=== PATIENT | female | born 1955 | race Two or more races ===

== ENCOUNTER → 2024-11-07 | Outpatient (CLI) | payer MEDICARE, SELFPAY ==
--- NOTE | 2024-11-07 08:51 | XR_ITS ---
Examination: Knee, right , 3 views Technique: Knee AP, lateral, oblique 3 views Date and time of exam: November 07, 2024 1002 hours INDICATIONS: Knee pain for years. FINDINGS: Moderate osteopenia Advanced medial joint space Significant osteoarthritis lateral patellofemoral joints IMPRESSION: Advanced tricompartment osteoarthritis
== END | disposition home or self-care (01) ==
LOC: CDIM 08:45
PROVIDERS: Referring Provider Orthopaedic Surgery; Visit Provider Orthopaedic Surgery
DX: M17.11 Unilateral primary osteoarthritis, right knee (principal)
CPT/HCPCS: 73562

== ENCOUNTER 2025-03-11 14:59 | Emergency (ER) | payer MEDICARE, SELFPAY ==
[2025-03-11 15:31] VITALS: BP 123/70; PULSE 80; RESP 18; TEMP 37.2; O2SAT 98
--- NOTE | 2025-03-11 15:45 | XR_ITS ---
Examination: CT abdomen with intravenous contrast CT pelvis with intravenous contrast 2-D coronal reconstructions 2-D sagittal reconstructions Date and time of exam:March 10, 1706 hrs., Comparison November 13, 2023. Indications: Abdominal pain constipation beginning one month ago. CTDI: vol (mGy) 7.92 DLP: (mGycm) 166 Technique: Multiple axial sections of the abdomen and pelvis have been obtained. 64 slice high-resolution scanner used. 3 mm axial sections have been obtained, post intravenous injection 60 cc [id number]. 2-D sagittal, coronal reconstructions obtained. Low dose protocols were performed. One or more of the following dose reduction techniques were used; automated exposure control, adjustment of the mA and/or KV according to patient size, use of iterative reconstruction technique. Findings: Suspicious for pulmonary edema the lung bases Mild enlargement cardiac contour No focal liver or splenic lesions Contracted gallbladder Moderate renal parenchymal scar formation, no hydronephrosis or ureteral calculi Normal appendix No bowel obstruction No pancreatic or adrenal mass. Posterior 18 mm left renal cyst No renal or ureteral calculi, no hydronephrosis Aorta normal size 20 mm fat-containing umbilical hernia. Normal appendix No bowel obstruction Scattered colonic diverticulosis, no diverticulitis Absent uterus Contracted urinary bladder Moderate osteopenia with mild to moderate diffuse lumbar disc narrowing Impression: Suspicious for pulmonary edema at the lung bases, recommend PA chest follow-up Bilateral moderate renal parenchymal scar formation. Normal appendix No bowel obstruction
--- NOTE | 2025-03-11 15:45 | PD.EDADULT ---
ED General RME/HPI General Chief complaint: General Adult/Misc Complain Stated complaint: CONSTIPATED; UNABLE TO PASS GAS Time Seen by Provider: 03/11/25 15:35 Arrival date/time: 03/11/25 14:59 Related Data Home Medications ?Medication ?Instructions ?Recorded ?Confirmed paroxetine HCl 10 mg tablet 10 mg PO HS 09/09/18 11/19/23 pregabalin 75 mg capsule (Lyrica) 75 mg PO BID 09/09/18 11/19/23 spironolactone 50 mg tablet 50 mg PO QDAY 09/09/18 11/19/23 hydrocodone 5 mg-acetaminophen 325 1 tab PO Q12HR PRN Pain 09/11/18 11/19/23 mg tablet Previous Rx's ?Medication ?Instructions ?Recorded benzonatate 200 mg capsule 200 mg PO BID PRN cough #30 caps 06/18/19 ipratropium bromide 21 mcg (0.03 2 spray intranasal BID #30 mL 06/18/19 %) nasal spray loratadine 10 mg tablet (Allergy 10 mg PO QDAY allergy symptoms #30 06/18/19 Relief (loratadine)) tabs pseudoephedrine HCl 120 mg 120 mg PO Q12H PRN nasal 06/18/19 tablet,extended release (Sudafed congestion #14 tabs 12 Hour) dicyclomine 20 mg tablet 20 mg PO TID PRN abdominal pain 11/13/23 #20 tabs pantoprazole 40 mg tablet,delayed 40 mg PO QDAY #14 tabs 11/13/23 release (Protonix) Allergies Allergy/AdvReac Type Severity Reaction Status Date / Time levofloxacin Allergy Intermediate ITCHING Verified 03/11/25 15:03 AND RASH nitrofurantoin Allergy Intermediate ITCHING Verified 03/11/25 15:03 AND RASH Course Vital Signs Vital signs: Vital Signs Temperature 99.0 F 03/11/25 15:31 Pulse Rate 80 03/11/25 15:31 Respiratory Rate 18 03/11/25 15:31 Blood Pressure 123/70 03/11/25 15:31 Pulse Oximetry (%) 98 03/11/25 15:31 Oxygen Delivery Method Room Air 03/11/25 15:31 Discharge Plan Prescriptions/Referrals Prescriptions/Med Rec: No Action loratadine [Allergy Relief (loratadine)] 10 mg tablet 10 mg PO QDAY Qty: 30 3RF ipratropium bromide 0.03 % spray,non-aerosol 2 spray INTRANASAL BID Qty: 30 0RF Rx Instructions: administer into each nostril; wait 30 seconds between sprays benzonatate 200 mg capsule 200 mg PO BID PRN (Reason: cough) Qty: 30 0RF pseudoephedrine HCl [Sudafed 12 Hour] 120 mg tablet extended release 120 mg PO Q12H PRN (Reason: nasal congestion) Qty: 14 0RF paroxetine HCl 10 mg Tablet 10 mg PO HS Lyrica 75 mg Capsule 75 mg PO BID spironolactone 50 mg Tablet 50 mg PO QDAY hydrocodone-acetaminophen 5-325 mg Tablet 1 tab PO Q12HR PRN (Reason: Pain) pantoprazole [Protonix] 40 mg tablet,delayed release (DR/EC) 40 mg PO QDAY Qty: 14 0RF dicyclomine 20 mg tablet 20 mg PO TID PRN (Reason: abdominal pain) Qty: 20 0RF Patient/Caregiver Discharge Instructions Print Language: Uzbek
[2025-03-11] MEDS: SODIUM CHLORIDE 0.9% 1000 ML 1,000 ML 999 ML IV (16:14)
[2025-03-11 16:16] LABS: Collection Type, Urine Clean Catch
[2025-03-11 16:29] LABS: Basophils # (Auto) 0.0 Thou/mm3 (0.0-0.2); Basophils % (Auto) 1 % (0-2.5); Eosinophils # (Auto) 0.1 Thou/mm3 (0.0-0.5); Eosinophils % (Auto) 1 % (0-10); Hematocrit 33.6 % (36.0-46.0); Hemoglobin 11.5 g/dL (12.0-16.0); Immature Granulocytes Auto 0.02 Thou/mm3 (0.00-0.00); Lymphocytes # (Auto) 2.2 Thou/mm3 (1.0-4.8); Lymphocytes % (Auto) 30 % (10-50); Mean Corpuscular HGB Conc 34.2 g/dl (31.0-37.0); Mean Corpuscular Hemoglobin 29.3 pg (25.0-35.0); Mean Corpuscular Volume 86 fL (80-100); Monocytes # (Auto) 0.6 Thou/mm3 (0.0-0.8); Monocytes % (Auto) 9 % (0-12); Neutrophils # (Auto) 4.4 Thou/mm3 (1.8-7.7); Neutrophils % (Auto) 60 % (37-80); Nucleated Red Blood Cell # 0.00 Thou/mm3 (0.00-0.00); Nucleated Red Blood Cell % 0 /100 WBC (0); Platelet Count 294 Thou/mm3 (140-440); RDW Standard Deviation 39.8 fL (36.4-46.3); Red Blood Count 3.92 Miln/mm3 (4.00-5.20); White Blood Count 7.4 Thou/mm3 (3.6-11.0)
[2025-03-11 16:43] LABS: Amphetamine/Methamp Scrn,U Negative (Negative); Barbiturate Screen,Urine Negative (Negative); Benzodiazepines Screen,Urine Negative (Negative); Benzoylecgonine Screen, Ur Negative (Negative); Fentanyl Screen,Urine Negative (Negative); Opiate Screen,Urine Negative (Negative); THC Screen,Urine Negative (Negative)
[2025-03-11 16:49] LABS: Alanine Aminotransferase 16 U/L (10-49); Albumin, Serum 5.1 gm/dL (3.4-4.8); Albumin/Globulin Ratio 1.6 (1.2-2.2); Alkaline Phosphatase 68 U/L (46-116); Anion Gap 10 (7-16); Aspartate Amino Transferase 26 U/L (0-34); BUN/Creatinine Ratio 16 Ratio (12-20); Bilirubin,Total 0.5 mg/dL (0.3-1.2); Blood Urea Nitrogen 19 mg/dL (9-23); Calcium 10.8 mg/dL (8.3-10.6); Calcium (Corrected) 10.8 mg/dL (8.5-10.1); Carbon Dioxide 29.7 mMol/L (20.0-31.0); Chloride 98 mMol/L (98-107); Creatinine (Component) 1.2 mg/dL (0.6-1.3); Estimated Creatinine Clearance 42.8 mL/min (>60); Globulin 3.1 gm/dL (2.3-3.5); Glucose 85 mg/dL (74-106); Lipase 48 U/L (12-53); Osmolality,Calculated 276 (275-295); Potassium 3.6 mMol/L (3.4-5.1); Sodium 138 mMol/L (136-145); Total Protein 8.2 gm/dL (5.7-8.2); eGFR 49 See Note
[2025-03-11 16:53] LABS: Bilirubin,Urine Negative (Negative); Blood,Urine Negative (Negative); Clarity,Urine Turbid (Clear/Hazy); Color,Urine Yellow (Lt Yel-Yel); Glucose, Urine Negative (Negative); Hyaline Casts,Urine 2 /hpf (0-1); Ketones,Urine Trace (Negative); Leukocyte Esterase,Urine Positive (Negative); Nitrite,Urine Negative (Negative); PH,Urine 6.5 (5.0-7.0); Protein,Urine 2+ (Neg - Trace); RBC,Urine 5 /hpf (0-3); Specific Gravity,Urine 1.043 (1.001-1.035); Squamous Epithelial Cell,Urine 18 /hpf (0-5); Transitional Epi Cells,Urine 2 /hpf (0-5); Urobilinogen,Urine 2.0 mg/dL (0.0-1.0); WBC,Urine 18 /hpf (0-5)
--- NOTE | 2025-03-11 17:45 | PD.EDRME ---
Rapid Medical Screening Exam RME Arrival date/time: 03/11/25 14:59 Chief Complaint: General Adult/Misc Complain Time Seen by Provider: 03/11/25 15:35 Vital signs: Vital Signs Temperature 99.0 F 03/11/25 15:31 Pulse Rate 80 03/11/25 15:31 Respiratory Rate 18 03/11/25 15:31 Blood Pressure 123/70 03/11/25 15:31 Pulse Oximetry (%) 98 03/11/25 15:31 Oxygen Delivery Method Room Air 03/11/25 15:31 RME Narrative: 69-year-old patient with history of diabetes currently on metformin and Ozempic. Has been struggling with 2 weeks of constipation and abdominal distention. States was given lactulose, magnesium citrate, Colace without resolution. States now is not constipated but now having watery stools but the sensation of abdominal pain is still there. No history of cirrhosis.hx of complete hysterectomy and .
--- NOTE | 2025-03-11 18:01 | PD.EDADULT ---
ED General RME/HPI General Chief complaint: General Adult/Misc Complain Stated complaint: CONSTIPATED; UNABLE TO PASS GAS Time Seen by Provider: 03/11/25 15:35 Arrival date/time: 03/11/25 14:59 Limitations: no limitations RME / HPI RME / HPI narrative: 69-year-old patient with history of diabetes currently on metformin and Ozempic. Has been struggling with 2 weeks of constipation and abdominal distention. States was given lactulose, magnesium citrate, Colace without resolution. States now is not constipated but now having watery stools but the sensation of abdominal pain is still there. No history of cirrhosis.hx of complete hysterectomy and . no chest pain no sob. no vomiting no hx of sbo. Related Data Home Medications ?Medication ?Instructions ?Recorded ?Confirmed paroxetine HCl 10 mg tablet 10 mg PO HS 09/09/18 11/19/23 pregabalin 75 mg capsule (Lyrica) 75 mg PO BID 09/09/18 11/19/23 spironolactone 50 mg tablet 50 mg PO QDAY 09/09/18 11/19/23 hydrocodone 5 mg-acetaminophen 325 1 tab PO Q12HR PRN Pain 09/11/18 11/19/23 mg tablet Previous Rx's ?Medication ?Instructions ?Recorded benzonatate 200 mg capsule 200 mg PO BID PRN cough #30 caps 06/18/19 ipratropium bromide 21 mcg (0.03 2 spray intranasal BID #30 mL 06/18/19 %) nasal spray loratadine 10 mg tablet (Allergy 10 mg PO QDAY allergy symptoms #30 06/18/19 Relief (loratadine)) tabs pseudoephedrine HCl 120 mg 120 mg PO Q12H PRN nasal 06/18/19 tablet,extended release (Sudafed congestion #14 tabs 12 Hour) dicyclomine 20 mg tablet 20 mg PO TID PRN abdominal pain 11/13/23 #20 tabs pantoprazole 40 mg tablet,delayed 40 mg PO QDAY #14 tabs 11/13/23 release (Protonix) Allergies Allergy/AdvReac Type Severity Reaction Status Date / Time levofloxacin Allergy Intermediate ITCHING Verified 03/11/25 15:03 AND RASH nitrofurantoin Allergy Intermediate ITCHING Verified 03/11/25 15:03 AND RASH Review of Systems Review of Systems Systems Reviewed: All systems reviewed, normal except as documented Constitutional Constitutional: Denies fever(s) Cardiovascular Cardiovascular: Denies dyspnea Respiratory Respiratory: Denies chest congestion, Denies cough, Denies dyspnea and Reports pain on inspiration Gastrointestinal Gastrointestinal: Reports abdominal pain, Reports bloating and Denies vomiting ED Exam General Limitations: Present no limitations General appearance: Present alert and in no apparent distress Eye Eye exam: Present normal appearance, PERRL and EOMI Respiratory Respiratory exam: Present normal lung sounds bilaterally Cardiovascular Cardiovascular exam: Present regular rate, normal rhythm and normal heart sounds Abdominal Exam Abdominal exam: Present soft, tenderness (diffuse ttp ) and normal bowel sounds Extremities Exam Extremities exam: Present normal inspection and full ROM Back Exam Back exam: Present normal inspection and full ROM Psychiatric Psychiatric exam: Present normal affect and normal mood Skin Skin exam: Present warm, dry, intact and normal color Course Quality Measures none Orders Category Date Time Status CT Screening NOW Care 03/11/25 15:46 Completed Insert IV NOW Care 03/11/25 15:[address] abdomen pelvis w con Stat Exams 03/11/25 15:45 Completed CBC Stat Lab 03/11/25 16:08 Completed CMP [Comprehensive Metabolic Panel] Stat Lab 03/11/25 16:08 Completed Drug Screen,Urine Stat Lab 03/11/25 16:10 Completed Lipase Stat Lab 03/11/25 16:08 Completed UA [Urinalysis] Stat Lab 03/11/25 16:10 Completed Sodium Chloride 0.9% 1000 ml [Ns] 1,000 ml Med 03/11/25 15:47 Discontinued IV 999 mls/hr Vital Signs Vital signs: Vital Signs Temperature 99.0 F 03/11/25 15:31 Pulse Rate 80 03/11/25 15:31 Respiratory Rate 18 03/11/25 15:31 Blood Pressure 123/70 03/11/25 15:31 Pulse Oximetry (%) 98 03/11/25 15:31 Oxygen Delivery Method Room Air 03/11/25 15:31 Discharge Plan Plan Patient Disposition: HOME (Self Care) Discharge Disposition comment: f/u in 2-days with pcp Prescriptions/Referrals Prescriptions/Med Rec: No Action loratadine [Allergy Relief (loratadine)] 10 mg tablet 10 mg PO QDAY Qty: 30 3RF ipratropium bromide 0.03 % spray,non-aerosol 2 spray INTRANASAL BID Qty: 30 0RF Rx Instructions: administer into each nostril; wait 30 seconds between sprays benzonatate 200 mg capsule 200 mg PO BID PRN (Reason: cough) Qty: 30 0RF pseudoephedrine HCl [Sudafed 12 Hour] 120 mg tablet extended release 120 mg PO Q12H PRN (Reason: nasal congestion) Qty: 14 0RF paroxetine HCl 10 mg Tablet 10 mg PO HS Lyrica 75 mg Capsule 75 mg PO BID spironolactone 50 mg Tablet 50 mg PO QDAY hydrocodone-acetaminophen 5-325 mg Tablet 1 tab PO Q12HR PRN (Reason: Pain) pantoprazole [Protonix] 40 mg tablet,delayed release (DR/EC) 40 mg PO QDAY Qty: 14 0RF dicyclomine 20 mg tablet 20 mg PO TID PRN (Reason: abdominal pain) Qty: 20 0RF Referrals: Bebeto Perez MD [Primary Care Provider] - In 1 week Problem List Clinical Impression: Abdominal pain, Pulmonary edema, Kidney scarring Patient/Caregiver Discharge Instructions Education Materials: Chest and Lung Problems, Abdominal Pain Print Language: Slovenian Stand Alone Forms: Mixers Award Info., Patient Portal Info Letter PA/STAFF SERVICES MANAGER Supervising Physician PA/STAFF SERVICES MANAGER Supervising Physician: Dr. barker [facility] Narrative MDM hospital course: 69yo with concerns of abdominal pain to point of sob from constipation. after extensive workup pt states she was already told about her lungs but will talk to pcp. explained she needs a gi referral for ongoing abdominal distenstion Clinical Information Provided by patient Medical Records Reviewed [facility] Meds/Rx Considered, not Ordered Describe details: further laxatives considered however pt can f/u outpt also considered lasix however pt declined Labs/Rad/Tests considered, not Ordered Describe details: trop, ekg and bnp were considered but cc was constipation and bloating Chronic Illness/Social Conditions Add or document further as needed: constipation opitate use which can contribute to issues she is having Lab Interpretation Lab(s) interpretation(s): cbc, cmp, lipase wnl Imaging Provider imaging interpretation(s): ct was Suspicious for pulmonary edema at the lung bases Bilateral moderate renal parenchymal scar formation. Medication Administration(s) Medication Administration History Discontinued Medications Sodium Chloride (Ns) 1,000 mls @ 999 mls/hr IV .Q1H1M ONE Stop: 03/11/25 16:47 Last Infusion: 03/11/25 16:40 Dose: Infused Documented By: Admin: 03/11/25 16:14 Dose: 999 mls/hr Documented By: MARY Diagnosis Differential diagnosis: sbo, constipation, cirrhosis, chf Dispositon Disposition: Discharge Home
== END 2025-03-11 18:16 | disposition home or self-care (01) ==
PROVIDERS: Physician Assistant; Emergency Provider Family Medicine; PCP Family Medicine
DX: N28.89 Other specified disorders of kidney and ureter (principal); J81.1 Chronic pulmonary edema; R10.9 Unspecified abdominal pain
CPT/HCPCS: 36415; 74177; 80053; 80307; 81001; 83690; 85025; 99283; A4649; J7030; Q9967

== ENCOUNTER 2025-05-04 17:08 | Emergency (ER) | payer MEDICARE, SELFPAY ==
[2025-05-04 17:08] VITALS: BMI 27.4
[2025-05-04 17:27] VITALS: BP 115/75; PULSE 87; RESP 18; TEMP 36.9; O2SAT 98
--- NOTE | 2025-05-04 17:37 | XR_ITS ---
Examination: CT brain head without contrast. 2-D sagittal coronal reconstructions Date and time of exam: May 04, 2025, 1810 hours, comparison March 03, 2013 INDICATIONS: Headaches pressure behind the eyes beginning 4 days ago CTDI: vol (mGy): 47.2 DLP: (mGycm): 951 Technique: Multiple CT axial sections of the brain have been obtained, 5 mm slice thickness. Contrast has not been administered. 2-D sagittal, coronal reconstructions have been obtained Low dose protocols were performed. One or more of the following dose reduction techniques were used; automated exposure control, adjustment of the mA and/or KV according to patient size, use of iterative reconstruction technique. Findings: No significant ventricular enlargement. Intra-axial or extra-axial hemorrhage density is not seen. No mass effect or midline shift Basal cisterns are not remarkable. Fourth ventricle is midline. Cranial vault intact. Impression: Negative for acute hemorrhage, mass effect or midline shift Extensive chronic sphenoid sinusitis
--- NOTE | 2025-05-04 17:39 | EDRME_ITS ---
Rapid Medical Screening Exam [facility] Arrival date/time: 05/04/25 17:08 69-year-old female with no known medical history presents to the emergency room with a chief complaint of a 10 out of 10 headache x 3 weeks patient states she has a history of migraines and that this headache feels worse I have greeted and performed a focused initial assessment of this patient. A comprehensive ED assessment and evaluation of the patient, analysis of all test results, and completion of the medical decision making process will be conducted by additional ED providers. Chief Complaint: Headache Time Seen by Provider: 05/04/25 17:14 Vital signs: Vital Signs Temperature 98.5 F 05/04/25 17:27 Pulse Rate 87 05/04/25 17:27 Respiratory Rate 18 05/04/25 17:27 Blood Pressure 115/75 05/04/25 17:27 Pulse Oximetry (%) 98 05/04/25 17:27 Oxygen Delivery Method Room Air 05/04/25 17:27 Vital signs reviewed by provider: Yes Exam: 10-10 headache Patient is a GCS of 15 alert and 2 x 3 pupils are PERRLA EOMs are intact there are no focal deficits Clinical Impression: Headache/mass effect on brain/subarachnoid hemorrhage
[2025-05-04 18:31] LABS: Basophils # (Auto) 0.1 Thou/mm3 (0.0-0.2); Basophils % (Auto) 1 % (0-2.5); Eosinophils # (Auto) 0.1 Thou/mm3 (0.0-0.5); Eosinophils % (Auto) 2 % (0-10); Hematocrit 30.5 % (36.0-46.0); Hemoglobin 10.8 g/dL (12.0-16.0); Immature Granulocytes Auto 0.02 Thou/mm3 (0.00-0.00); Lymphocytes # (Auto) 2.4 Thou/mm3 (1.0-4.8); Lymphocytes % (Auto) 32 % (10-50); Mean Corpuscular HGB Conc 35.4 g/dl (31.0-37.0); Mean Corpuscular Hemoglobin 29.7 pg (25.0-35.0); Mean Corpuscular Volume 84 fL (80-100); Monocytes # (Auto) 0.7 Thou/mm3 (0.0-0.8); Monocytes % (Auto) 10 % (0-12); Neutrophils # (Auto) 4.3 Thou/mm3 (1.8-7.7); Neutrophils % (Auto) 56 % (37-80); Nucleated Red Blood Cell # 0.00 Thou/mm3 (0.00-0.00); Nucleated Red Blood Cell % 0 /100 WBC (0); Platelet Count 264 Thou/mm3 (140-440); RDW Standard Deviation 41.0 fL (36.4-46.3); Red Blood Count 3.64 Miln/mm3 (4.00-5.20); White Blood Count 7.6 Thou/mm3 (3.6-11.0)
[2025-05-04 19:04] LABS: Alanine Aminotransferase 9 U/L (10-49); Albumin, Serum 5.1 gm/dL (3.4-4.8); Albumin/Globulin Ratio 2.0 (1.2-2.2); Alkaline Phosphatase 70 U/L (46-116); Anion Gap 11 (7-16); Aspartate Amino Transferase 19 U/L (0-34); BUN/Creatinine Ratio 28 Ratio (12-20); Bilirubin,Total 0.5 mg/dL (0.3-1.2); Blood Urea Nitrogen 22 mg/dL (9-23); Calcium 10.2 mg/dL (8.3-10.6); Calcium (Corrected) 10.2 mg/dL (8.5-10.1); Carbon Dioxide 29.1 mMol/L (20.0-31.0); Chloride 103 mMol/L (98-107); Creatinine (Component) 0.8 mg/dL (0.6-1.3); Estimated Creatinine Clearance 63.3 mL/min (>60); Free T4 (Free Thyroxine) 1.39 ng/dL (0.89-1.76); Globulin 2.6 gm/dL (2.3-3.5); Glucose 86 mg/dL (74-106); Osmolality,Calculated 287 (275-295); Potassium 4.2 mMol/L (3.4-5.1); Sodium 143 mMol/L (136-145); Thyroid Stimulating Hormone 0.59 uIU/mL (0.55-4.78); Total Protein 7.7 gm/dL (5.7-8.2); eGFR > 60 See Note
--- NOTE | 2025-05-04 22:12 | PD.EDHA ---
ED Headache RME/HPI General Chief Complaint: Headache Stated Complaint: GENERALIZED HEADACHE [id number] Time Seen by Provider: 05/04/25 17:14 Arrival date/time: 05/04/25 17:08 RME / HPI RME / HPI Narrative: 05/04/25 17:08 69-year-old female with no known medical history presents to the emergency room with a chief complaint of a 10 out of 10 headache x 3 weeks patient states she has a history of migraines and that this headache feels worse I have greeted and performed a focused initial assessment of this patient. A comprehensive ED assessment and evaluation of the patient, analysis of all test results, and completion of the medical decision making process will be conducted by additional ED providers. DR. AVINA MAIN ED EVALUATION: Patient presents with initial gradual onset headache progressing to include bi-temporal region and migratory x 3 weeks. Patient notes headache currently moderate to severe intensity without exacerbation with ambulation. No nausea, vomiting, fever, chills, URI or flu-like symptoms. No reported visual disturbances or gait disturbances. No lateral sensory or motor disturbances. Denies history of headache disorder. PMH: HTN, Type II DM PSH: Hysterectomy Allergies: None Social: Non-smoker, nondrinker, no illicit drug abuse Exam: 10-10 headache Patient is a GCS of 15 alert and 2 x 3 pupils are PERRLA EOMs are intact there are no focal deficits Impression: Headache/mass effect on brain/subarachnoid hemorrhage Related Data Home Medications ?Medication ?Instructions ?Recorded ?Confirmed paroxetine HCl 10 mg tablet 10 mg PO HS 09/09/18 11/19/23 pregabalin 75 mg capsule (Lyrica) 75 mg PO BID 09/09/18 11/19/23 spironolactone 50 mg tablet 50 mg PO QDAY 09/09/18 11/19/23 hydrocodone 5 mg-acetaminophen 325 1 tab PO Q12HR PRN Pain 09/11/18 11/19/23 mg tablet Previous Rx's ?Medication ?Instructions ?Recorded benzonatate 200 mg capsule 200 mg PO BID PRN cough #30 caps 06/18/19 ipratropium bromide 21 mcg (0.03 2 spray intranasal BID #30 mL 06/18/19 %) nasal spray loratadine 10 mg tablet (Allergy 10 mg PO QDAY allergy symptoms #30 06/18/19 Relief (loratadine)) tabs pseudoephedrine HCl 120 mg 120 mg PO Q12H PRN nasal 06/18/19 tablet,extended release (Sudafed congestion #14 tabs 12 Hour) dicyclomine 20 mg tablet 20 mg PO TID PRN abdominal pain 11/13/23 #20 tabs pantoprazole 40 mg tablet,delayed 40 mg PO QDAY #14 tabs 11/13/23 release (Protonix) amoxicillin 500 mg capsule 500 mg PO TID #30 caps 05/04/25 prednisone 20 mg tablet 40 mg PO QDAY 5 days #10 tabs 05/04/25 Allergies Allergy/AdvReac Type Severity Reaction Status Date / Time levofloxacin Allergy Intermediate ITCHING Verified 05/04/25 17:10 AND RASH nitrofurantoin Allergy Intermediate ITCHING Verified 05/04/25 17:10 AND RASH Review of Systems Review of Systems Systems Reviewed: All systems reviewed, normal except as documented Past Medical History Past Medical History NEUROLOGIC: Positive Neurological Disorders and Migraine CARDIAC: Positive Hypertension RESPIRATORY: Positive Asthma and Sleep Apnea GASTROINTESTINAL: Positive Gastrointestinal Disorders and Obesity REPRODUCTIVE: Positive Previous Pregnancies MUSCULOSKELETAL: Positive Musculoskeletal Disorders, Arthritis, Carpal Tunnel Syndrome, Fibromyalgia and Fractures ENDOCRINE: Positive Diabetes Mellitus Type 2 PSYCHO/SOCIAL: Positive Depression and Anxiety OTHER HISTORY: Positive Chicken Pox and Measles Family History FAMILY HISTORY: Positive Family Psychiatric Problems, Family Cardiac Disorders, Family Gastrointestinal Problems, Family Cancer and Family Surgery Surgical History SURGICAL: Positive Hysterectomy and Section ED Exam Narrative Physical exam: GEN. APPEARANCE: The patient is alert awake oriented X-3 under no distress, lying down comfortably, does not look ill/toxic. Patient has good eye contact. Patient is cooperative. VITALS: All vitals were reviewed and the pulse ox is 98%, which is normal according to my interpretation HEENT: Normocephalic, noted alodynia to BL temporal regions, no overlying erythema, or arterial engorgement. Pupils are equal and reactive. Oral mucosa is moist. NECK: Supple, nontender, no meningismus, no JVD. There is no thyromegaly and no lymphadenopathy. CHEST: Nontender on palpation no deformity and no crepitus. CARDIOVASCULAR: Heart regular rhythm, no murmur or gallop rub or extra beats. LUNGS: Clear to auscultation bilaterally with symmetrical chest rise. No laboring tachypnea or wheezing. No intercostal subcostal retraction. No rales and no rhonchi. ABDOMEN: Soft, flat, nontender to palpation, no guarding or rebound tenderness. There are no abnormal masses palpated. No pulsatile masses or bruits. Active and normal bowel sounds. EXTREMITIES:.Normal inspection and palpation. No edema. No cyanosis. Patient is able to move all 4 extremities well SKIN: Warm and dry, no rashes noted. MUSCULOSKELETAL: No lumbar or midline bony tenderness. There is no CVA tenderness. No paraspinal muscle spasm or tenderness. NEURO: Cranial nerves II through XII grossly intact. There are no focal neurologic deficits noted. GCS is 15 PSYCHIATRIC: Patient is in normal mood and affect, cooperative. LYMPHATICS: No major lymphadenopathy noted. Course Quality Measures none Orders Category Date Time Status CT head/brain wo con Stat Exams 05/04/25 17:37 Completed CBC Stat Lab 05/04/25 18:17 Completed CMP [Comprehensive Metabolic Panel] Stat Lab 05/04/25 18:17 Completed Free T4 (Free Thyroxine) Stat Lab 05/04/25 18:17 Completed TSH [Thyroid Stimulating Hormone] Stat Lab 05/04/25 18:17 Completed Dexamethasone Inj [Decadron Inj] Med 05/04/25 22:16 Discontinued 10 mg IM X1 ONE Morphine* Inj Med 05/04/25 22:16 Discontinued 4 mg IM X1 ONE Promethazine Inj [Phenergan Inj] Med 05/04/25 22:16 Discontinued 12.5 mg IM X1 ONE Vital Signs Vital signs: Vital Signs Temperature 98.5 F 05/04/25 17:27 Pulse Rate 87 05/04/25 17:27 Respiratory Rate 18 05/04/25 17:27 Blood Pressure 115/75 05/04/25 17:27 Pulse Oximetry (%) 98 05/04/25 17:27 Oxygen Delivery Method Room Air 05/04/25 17:27 Headache MDM Narrative MDM Narrative:: Scribe Attestation: Alyx Vines, blanca scribing for and in the presence of Dr. Avina. Provider Notation: Although this document has been carefully reviewed, there may still be some phonetic and other typographical errors. These errors are purely grammatical due to imperfections in the software program and should not be construed in any way to compromise the substance of the patient's medical care during this visit. Patient presents with initial gradual onset headache progressing to include bi-temporal region and migratory x 3 weeks. Patient notes headache currently moderate to severe intensity without exacerbation with ambulation. Please see PE findings. Laboratory markers, including CBC and serum chemistries, demonstrate normal WBC of 7.6, mildly anemic with hemoglobin of 10.8 and normal platelet count. Serum chemistries were unremarkable. Advanced imaging, including CT Brain, was unremarkable, with the exception of extensive chronic sphenoid sinusitis. Patient was treated for mixed headache with IM narcotic analgesics/phenyl and IM steroid. Will discharge home with short course of Fiorinol in addition to Promethazine. Close F/U with PMD advised, precautionary inctructions issued. Short course of steroids and antibiotics prescribed. Patient data External records reviewed:: [facility] previous records (Reviewed prior ED records from 03/11/25. Patient was seen for Abdominal pain.) Clinical information provided by:: patient Social determinants that could affect healthcare access:: none Patient has the following chronic illnesses:: Migraine, Hypertension, Asthma, Sleep Apnea, Obesity, Arthritis, Carpal Tunnel Syndrome, Fibromyalgia, Diabetes Mellitus Type 2, Depression and Anxiety How is presenting disease/condition affected by chronic disease/condition?: exacerbated by Evaluation data The following diagnostics were reviewed and interpreted by me:: lab results and radiology exam(s) Lab and/or radiology exams considered but not ordered:: None Interpretation Summary: RADIOLOGY Head/Brain CT: Findings: No significant ventricular enlargement. Intra-axial or extra-axial hemorrhage density is not seen. No mass effect or midline shift Basal cisterns are not remarkable. Fourth ventricle is midline. Cranial vault intact. Impression: Negative for acute hemorrhage, mass effect or midline shift Extensive chronic sphenoid sinusitis Medications / Prescriptions Medications or Prescriptions considered but not ordered:: None Medication administrations:: Medication Administration History Discontinued Medications Dexamethasone Sodium Phosphate (Dexamethasone Sod Phos Inj 10 Mg/Ml Vial) 10 mg IM X1 ONE Stop: 05/04/25 22:17 Last Admin: 05/04/25 23:32 Dose: 10 mg Documented By: SE Morphine Sulfate (Morphine Sulf Inj 4 Mg/Ml Vial) 4 mg IM X1 ONE Stop: 05/04/25 22:17 Last Admin: 05/04/25 23:34 Dose: 4 mg Documented By: SE Promethazine HCl (Promethazine Inj 25 Mg/Ml Vial) 12.5 mg IM X1 ONE; Protocol Stop: 05/04/25 22:17 Last Admin: 05/04/25 23:34 Dose: Not Given Documented By: Non-Admin Reason: Cancelled by Provider See above if any Consultations Consultation(s) initiated? (list below): No Diagnosis Differential diagnosis headache: migraine, tension headache, subarachnoid hemorrhage, headache, meningitis and sinusitis Most likely diagnosis given after review of the tests above:: Mixed headache, Chronic sphenoidal sinusitis Admission Indicated Admission indicated?: not indicated Explain why admission is indicated or not indicated:: Patient does not meet admission criteria Admission Request Was there a request for admission?: No Disposition Plan Disposition Plan: Discharge Discharge Attestation Discharge Attestation: The patient and all family members were given an opportunity to ask questions and understood the discharge instructions. Discharge instructions specifically effects, indications for sooner follow up or return to the emergency department, and the expected course of current diagnosis. Patient condition: Stable Discharge Plan Plan Patient Disposition: HOME (Self Care) Discharge Disposition comment: stable Prescriptions/Referrals Prescriptions/Med Rec: New prednisone 20 mg tablet 40 mg PO QDAY 5 Days Qty: 10 0RF Taper: Prednisone Taper 40 mg DAILY for 5 Days and 0 Hour amoxicillin 500 mg capsule 500 mg PO TID Qty: 30 0RF No Action loratadine [Allergy Relief (loratadine)] 10 mg tablet 10 mg PO QDAY Qty: 30 3RF ipratropium bromide 0.03 % spray,non-aerosol 2 spray INTRANASAL BID Qty: 30 0RF Rx Instructions: administer into each nostril; wait 30 seconds between sprays benzonatate 200 mg capsule 200 mg PO BID PRN (Reason: cough) Qty: 30 0RF pseudoephedrine HCl [Sudafed 12 Hour] 120 mg tablet extended release 120 mg PO Q12H PRN (Reason: nasal congestion) Qty: 14 0RF paroxetine HCl 10 mg Tablet 10 mg PO HS Lyrica 75 mg Capsule 75 mg PO BID spironolactone 50 mg Tablet 50 mg PO QDAY hydrocodone-acetaminophen 5-325 mg Tablet 1 tab PO Q12HR PRN (Reason: Pain) pantoprazole [Protonix] 40 mg tablet,delayed release (DR/EC) 40 mg PO QDAY Qty: 14 0RF dicyclomine 20 mg tablet 20 mg PO TID PRN (Reason: abdominal pain) Qty: 20 0RF Referrals: Bebeto Perez MD [Primary Care Provider, Family Practice] - In 1 week Problem List Clinical Impression: Mixed headache, Chronic sphenoidal sinusitis Impression comment: Mixed headache/sinusitis Patient/Caregiver Discharge Instructions Discharge Activity: activity as tolerated Diet Instructions: Force fluids. Education Materials: Understanding Headache Pain, Chronic Sinusitis Additional Instructions: Force fluids/medication as directed/follow-up with PMD for referral to e learning coordinator Print Language: Singaporean Stand Alone Forms: [employer] Award Info., Patient Portal Info Letter
[2025-05-04] MEDS: DEXAMETHASONE SOD PHOS INJ 10 MG/ML VIAL IM (23:32)
[2025-05-04] MEDS: MORPHINE SULF INJ 4 MG/ML VIAL IM (23:34)
--- NOTE | 2025-05-04 23:50 | PC.NURSE ---
SPOKE WITH PT SHE C/O WAITING TO LONG. I EXPLAINED WE WERE DOING THE BEST WE CAN. [place] STATED OTHER PEOPLE THAT CAME AFTER HER LEFT BEFORE HER.
== END 2025-05-04 23:52 | disposition home or self-care (01) ==
PROVIDERS: Nurse Practitioner Family; Emergency Provider Emergency Medicine; PCP Family Medicine
DX: I60.9 Nontraumatic subarachnoid hemorrhage, unspecified (principal); E11.9 Type 2 diabetes mellitus without complications; I10 Essential (primary) hypertension; J32.3 Chronic sphenoidal sinusitis; Z90.710 Acquired absence of both cervix and uterus
CPT/HCPCS: 36415; 70450; 80053; 84439; 84443; 85025; 96372; 99282; J1100; J2270